=== PATIENT | female | born 1990 | race Caucasian/White ===

== ENCOUNTER 2018-08-15 15:18 | Emergency (ER) | payer OTHER, SELFPAY ==
[2018-08-15 15:20] VITALS: BP 136/79; PULSE 72; RESP 12; TEMP 37.1; O2SAT 100; BMI 28.3
--- NOTE | 2018-08-15 16:32 | DI.RAD.S_ITS ---
PROCEDURE: XR CHEST 2V INDICATIONS: right sided pain TECHNIQUE: 2 views of the chest were acquired. COMPARISON: None. FINDINGS: Surgical changes and devices: None. Lungs and pleura: Lungs are clear. No pleural effusions or pneumothorax. Mediastinum: Mediastinal contours are normal. Heart size is normal. Bones and chest wall: No suspicious bony abnormalities. Soft tissues appear unremarkable. IMPRESSION: Normal for age, source of current right-sided pain symptoms is not seen. Dictated by: Farhad Mcclelland M.D. on 08/15/2018 at 17:04 Approved by: Farhad Mcclelland M.D. on 08/15/2018 at 17:04
[2018-08-15] MEDS: KETOROLAC 60 MG/2 ML VIAL 30 MG IM (16:36)
--- NOTE | 2018-08-15 16:56 | ED_ITS ---
HPI - Chest Pain General Chief Complaint: Chest Pain Stated Complaint: CHEST PAIN Time Seen by Provider: 08/15/18 16:20 Source: patient Mode of arrival: ambulatory Limitations: no limitations History of Present Illness HPI narrative: Patient is a 27 year old female who presents left upper chest pain. It is in 1 particular spot. It has been there all day nonradiating it comes and goes. Not exacerbated by food or exertion or movement. She can't pinpoint it but can't reproduce it. She denies any injury. She has taken Tums thought it was some acid reflux although Tums did not help. No radiation of pain. MD complaint: chest pain Duration: intermittent Pain location: left chest Severity: moderate Quality: sharp Pain radiation: none Relieving factors: nothing Context: recent illness Related Data Home Medications Medication Instructions Recorded Confirmed No Known Home Medications 08/15/18 08/15/18 Allergies Allergy/AdvReac Type Severity Reaction Status Date / Time No Known Drug Allergies Allergy Verified 08/15/18 15:24 Review of Systems Review of Systems GENERAL: Denies chills, fatigue, malaise, fever, sweats, travel HEENT: Denies sinus pain, ear pain, sore throat, difficulty swallowing, neck pain RESPIRATORY: Denies dyspnea, cough, wheezing, hemoptysis, sputum. CARDIOVASCULAR: See HPI GASTROINTESTINAL: Denies nausea, vomiting, abdominal pain, diarrhea, constipation, melena. : Denies dysuria, frequency, incontinence, hematuria, urinary retention, flank pain. MUSCULOSKELETAL: Denies weakness, joint pain, or bony pain SKIN: No rash, no erythema, no pruritus NEUROLOGIC: Denies weakness, dizziness, headache, numbness, change in speech, confusion PSYCHIATRIC: No concerning psychosocial issues. 12 point review of systems is negative except for those stated above and HPI COUNTS INCLUDE 234 BEDS AT THE [facility] Medical History Patient denies significant medical history (Acute) Surgical History Status post (Acute) Social History Smoking Status: Never smoker Social History Smoking Status: Never smoker Exam Initial Vital Signs Initial Vital Signs: Vital Signs Temperature 98.7 F 08/15/18 15:20 Pulse Rate 72 08/15/18 15:20 Respiratory Rate 12 08/15/18 15:20 Blood Pressure 136/79 08/15/18 15:20 Pulse Oximetry 100 08/15/18 15:20 GENERAL: Alert young female and in no acute distress. HEENT: Head atraumatic,EOMI, pupils reactive, CARDIOVASCULAR: Regular rate and rhythm without murmurs, rubs or gallops. Pain is not reproducible by palpation. Although she still is able to pinpoint it is underneath her left breast anteriorly. RESPIRATORY: Breath sounds equal bilaterally, no wheezes rales or rhonchi. ABDOMEN: Soft, nontender. Normoactive bowel sounds all 4 quadrants. No guarding or rebound. EXTREMITIES: Normal range of motion, no clubbing or edema. Neurovascularly intact NEUROLOGICAL: Alert and oriented x4.Normal gait and speech. Cranial nerves II through XII grossly intact. SKIN: Warm, dry, no laceration, no petechiae, no rashes or lesions. Scores HEART Score Heart Score history: Slightly Suspicious Heart Score EKG: Normal Heart Score Age: < 45 years old Heart Score risk factors: No known risk factors Heart Score troponin: < or = to normal limit Heart Score Total: 0 Course Orders Ordered: ED Orders 08/15/18 15:23 EKG-12 Lead Stat 08/15/18 16:32 XR chest 2V Stat Discontinued Medications Ketorolac Tromethamine (Toradol) 30 mg IM NOW ONE Stop: 08/15/18 16:33 Last Admin: 08/15/18 16:36 Dose: 30 mg Vital Signs - 8 hr 08/15/18 15:20 08/15/18 17:02 Temperature 98.7 F Pulse Rate 72 65 Respiratory Rate 12 16 Blood Pressure 136/79 Blood Pressure [Left Arm] 113/76 Pulse Oximetry 100 100 MDM - Chest Pain Imaging Data Chest x-ray: Radiologist's impression: PROCEDURE: XR CHEST 2V INDICATIONS: right sided pain TECHNIQUE: 2 views of the chest were acquired. COMPARISON: None. FINDINGS: Surgical changes and devices: None. Lungs and pleura: Lungs are clear. No pleural effusions or pneumothorax. Mediastinum: Mediastinal contours are normal. Heart size is normal. Bones and chest wall: No suspicious bony abnormalities. Soft tissues appear unremarkable. IMPRESSION: Normal for age, source of current right-sided pain symptoms is not seen. Dictated by: Farhad Mcclelland M.D. on 08/15/2018 at 17:04 ECG Data Attestation: I personally reviewed and interpreted this ECG as follows: Prior ECG tracings: not available for review Interpretation: Normal sinus rhythm rate [address] changes and no T-wave inversions PA interval 164 MDM Narrative Medical decision making narrative: At this time patient's symptoms are pinpoint. I do not believe it to be cardiac. A low risk. Seems to be more musculoskeletal. Better with Toradol. Discharge Plan Departure Patient Disposition: Home Clinical Impression: Acute costochondritis Discharge Date/Time: 08/15/18 17:12 Interventions: ED Discharge Assessment Last Done: 08/15/18 17:12 Instructions: Costochondritis Activity Restrictions/Additional Instructions: *You have been diagnosed with costochondritis *What to do: This can take time to heal. Seems to be more musculoskeletal. X- ray and EKG within normal limits *Continue to take medications as directed Motrin 800 mg 8 hours if needed for pain take with food for 1 week *Follow up with your primary care provider in 2-3 days *Return to ER if you should have increasing chest pain, shortness of breath, fever or any new, worsening or concerning symptoms Prescriptions: No Action No Known Home Medications RF: 0
[2018-08-15 17:02] VITALS: BP 113/76; PULSE 65; RESP 16; O2SAT 100
== END 2018-08-15 17:12 | disposition home or self-care (01) ==
PROVIDERS: Emergency Provider Emergency Medicine
DX: M94.0 Chondrocostal junction syndrome [Tietze] (principal); R07.89 Other chest pain
CPT/HCPCS: 71046; 93005; 96372; 99282; 99284; J1885

== ENCOUNTER 2020-03-11 12:57 | Emergency (ER) | payer OTHER, SELFPAY ==
[2020-03-11 13:50] VITALS: BP 164/82; PULSE 48; RESP 16; TEMP 36.9; O2SAT 100; BMI 26.9
[2020-03-11 14:19] LABS: Add Manual Diff / Slide Review NO; Basophils Absolute Auto 100 /uL (0-100); Basophils Percent Auto 0.8 % (0-2); Eosinophils Absolute Auto 0 /uL (0-450); Eosinophils Percent Auto 0.3 % (2-4); Hematocrit 40.3 % (36-46); Hemoglobin 13.7 g/dL (12.0-16.0); Lymphocytes Absolute Auto 2400 /uL (1100-4500); Lymphocytes Percent Auto 20.2 % (25-40); Mean Corpuscular HGB Conc 33.9 % (30-36); Mean Corpuscular Hemoglobin 30.4 PG (26-34); Mean Corpuscular Volume 89.9 fL (80-100); Monocytes Absolute Auto 400 /uL (0-900); Monocytes Percent Auto 3.8 % (3-14); Neutrophils Absolute Auto 8900 /uL (1500-7000); Neutrophils Percent Auto 74.9 % (50-75); Platelet Count 324 X10^3/uL (150-400); Red Blood Cell Count 4.48 X10^6/uL (4.0-5.2); Red Cell Distribution Width 13.1 % (11.6-14.8); White Blood Cell Count 11.8 X10^3/uL (4.5-11.0)
[2020-03-11 14:23] LABS: INR 1.1 (0.9-1.3); Prothrombin Time 12.3 SECONDS (10.1-12.7)
[2020-03-11 14:25] LABS: PTT Partial Thromboplastin Tim 33 SECONDS (26.4-36.2)
[2020-03-11 14:27] LABS: Alanine Aminotransferase 20 IU/L (<35); Albumin 4.8 g/dL (3.5-5.0); Albumin Globulin Ratio 1.3 (1.0-2.8); Alkaline Phosphatase 49 U/L (38-126); Aspartate Aminotransferase 23 IU/L (14-36); BUN Creatinine Ratio 11.1 (6-22); Bilirubin Total 0.5 mg/dL (0.2-1.3); Blood Urea Nitrogen 8 mg/dL (7-17); Calcium 9.8 mg/dL (8.4-10.2); Carbon Dioxide 29 mmol/L (22-32); Chloride 103 mmol/L (98-107); Estimated Glomerular Filt Rate > 60.0 mL/min (>60); Globulin 3.8 g/dL (1.7-4.1); Glucose 100 mg/dL (70-100); HEMOLYSIS < 15 (0-50); Potassium 3.8 mmol/L (3.4-5.1); Sodium 138 mmol/L (137-145); Total Protein 8.6 g/dL (6.3-8.2)
--- NOTE | 2020-03-11 15:26 | DI.CT.S_ITS ---
PROCEDURE: CT ABDOMEN PELVIS W CON INDICATIONS: LLQ pain, N/V/bloody stools TECHNIQUE: After the administration of intravenous contrast, 5 mm thick sections acquired from the diaphragm to the symphysis. 5 mm coronal and sagittal reformats were acquired. For radiation dose reduction, the following was used: automated exposure control, adjustment of mA and/or kV according to patient size. COMPARISON: None. FINDINGS: Image quality: Excellent. ABDOMEN: Lung bases: Lung bases are clear. Heart size is normal. Solid organs: Liver is enlarged. Gallbladder is unremarkable . Biliary system is non dilated. Pancreas enhances normally. Spleen is normal in size and enhancement. No adrenal nodules. Kidneys demonstrate normal size and enhancement, without hydronephrosis. Peritoneum and bowel: Bowel loops demonstrate thickening and inflammatory change within significant portions of the descending colon. No free fluid or air. Nodes and vessels: No retroperitoneal or mesenteric adenopathy by size criteria. Aorta and inferior vena cava are normal in size. Miscellaneous: No ventral hernias. PELVIS: Genitourinary: Bladder wall thickness is normal. Miscellaneous: No inguinal hernias or adenopathy. Bones: No suspicious bony lesions. No vertebral body compression fractures. IMPRESSION: 1. Thickening and surrounding inflammatory change of the descending colon as above most consistent with colitis. This is most suspicious for inflammatory or infectious etiology. No visualized perforation or fluid collection. As clinically indicated, interval follow up after appropriate therapy may be obtained to document resolution exclude presence of underlying mass lesion. Dictated by: Bina Montes M.D. on 03/11/2020 at 15:58 Approved by: Bina Montes M.D. on 03/11/2020 at 16:00
[2020-03-11] MEDS: PANTOPRAZOLE 40 MG VIAL IV (15:35)
[2020-03-11] MEDS: SODIUM CHLORIDE 0.9% 1,000 ML 1000 ML IV (15:35)
[2020-03-11] MEDS: ONDANSETRON 4 MG/2 ML INJ IV (15:35)
[2020-03-11 16:05] LABS: Lactate (Lactic Acid) 1.3 mmol/L (0.7-2.1)
[2020-03-11 16:12] LABS: COVID19 -Nasal RAPID Negative (Negative)
[2020-03-11 16:29] LABS: Pregnancy Test Serum,Qual Negative (Negative)
[2020-03-11] MEDS: KETOROLAC 60 MG/2 ML VIAL 15 MG IV (16:34)
--- NOTE | 2020-03-11 17:28 | ED_ITS ---
HPI - Abdominal Pain <KEENA MartellP - Last Filed: 03/11/20 21:51> General Chief Complaint: Abdominal Pain Stated Complaint: Stomach Pain Time Seen by Provider: 03/11/20 15:21 Source: patient Mode of arrival: Ambulatory Limitations: no limitations History of Present Illness HPI narrative: This is a 29-year-old female, nonsmoker, who has no pertinent medical history presents to ED with chief complain of abdominal and had and 4-5 episodes of vomiting with diarrhea with bright red blood for about 16 hours. Patient pain is located in mid abdomen and worse in left quadrant. She denies fever or chills. Patient denies history of Crohn's or colitis but reports father had diverticulitis. Patient denies recent antibiotic medication use. Denies ovarian cyst history. Denies chest pain, dyspnea, dizziness, urinary symptoms but reports feels dehydrated.LMP 02/16/2020. 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 Related Data Previous Rx's Medication Instructions Recorded ciprofloxacin HCl [Cipro] 500 mg PO BID 7 Days #14 tab 03/11/20 hydrocodone-acetaminophen [[place]] 1 tab PO Q8H PRN #7 tab 03/11/20 metronidazole [Flagyl] 500 mg PO Q8H 7 Days #21 tab 03/11/20 ondansetron 4 mg PO Q8H PRN #7 tab 03/11/20 Allergies Allergy/AdvReac Type Severity Reaction Status Date / Time No Known Drug Allergies Allergy Verified 03/11/20 13:56 Review of Systems <Paul Lee [facility] - Last Filed: 03/11/20 21:51> Review of Systems Narrative: General: Denies fever, chills, fatigue, malaise, sweats. HEENT: Denies sinus pain, ear pain, sore throat, difficulty swallowing, dizziness. Respiratory: Denies dyspnea, cough, wheezing, hemoptysis, sputum. Cardiovascular: Denies chest pain, palpitations, orthopnea, edema. Gastrointestinal: See HP a : Denies dysuria, frequency, incontinence, hematuria, urinary retention. Musculoskeletal: Denies weakness, joint pain or bony pain. Skin: Denies rash, skin lesions, or other. Neurologic: Denies weakness, headache, numbness, change in speech, confusion, seizures, incoordination. Psychiatric: No concerning psychosocial issues. 12-point review of systems is negative except for those stated above. Patient History <AYO Martell - Last Filed: 03/11/20 21:51> Medical History Patient denies significant medical history Surgical History Status post Social History Smoking Status: Never smoker Smoking Status: Never smoker alcohol intake frequency: holidays/special occasions only Substance Use Type: does not use Exam <AYO Martell - Last Filed: 03/11/20 21:51> Narrative Exam Narrative: GEN: Alert, oriented x 3, well appearing and nourished, and in no acute distress. Head: Normal cephalic, atraumatic. No scalp or temporal tenderness, palpable mass or rash. EYES: Pupils are equal, round, and reactive to light and accommodation. Extraocular muscles are intact bilaterally. There is no subconjunctival hemorrhage, exudate and sclera non-icteric. ENT: Hearing grossly intact. Nose without bleeding, purulent discharge or deviation. Mucous membrane moist, no mucosal lesion. Throat without erythema, tonsillar hypertrophy or exudate. Uvula in midline, airway patent. Neck: Trachea in midline. No JVD, non-tender without lymphadenopathy. No masses or thyroid megaly. Supple, non-tender and no meningeal signs. CARDIAC: Normal regular rate and rhythm without murmurs, gallops, or rubs. No chest wall tenderness. No peripheral edema, cyanosis or pallor. Capillary refill is less than 2 seconds. RESPIRATORY: Lungs are clear to auscultate bilaterally. No cough, wheezes, rales, or rhonchi. No stridor, respiratory distress, increase work of breathing, or accessary muscle used. ABD: Abdomen soft and non-distended. Mid abdomen and left quadrant tender to palpate. No guarding or rebound tenderness to palpate. Bowel sounds are normal in all 4 quadrants. There is no palpable masses or organomegaly. EXT: Full painless ROM of all extremities with no loss of sensation, strength, effusion or edema. SKIN: Warm, dry, normal color for patient. No erythema, lesions or rash over visible areas. BACK: Nontender without deformity or crepitance. No flank tenderness. NEUROLOGICAL: Alert and oriented to place, time and person. Sensation and motor function intact bilaterally. No facial droops, dysphasia. PSYCHIATRIC: Good judgement and reason, without hallucinations, abnormal affect or abnormal behaviors during the examination. Patient is not suicidal. Initial Vital Signs Initial Vital Signs: Vital Signs Temperature 98.4 F 03/11/20 13:50 Pulse Rate 48 L 03/11/20 13:50 Respiratory Rate 16 03/11/20 13:50 Blood Pressure 164/82 H 03/11/20 13:50 Pulse Oximetry 100 03/11/20 13:50 <Drew Gutierrez DO - Last Filed: 03/12/20 07:16> Initial Vital Signs Initial Vital Signs: Vital Signs Temperature 98.4 F 03/11/20 13:50 Pulse Rate 48 L 03/11/20 13:50 Respiratory Rate 16 03/11/20 13:50 Blood Pressure 164/82 H 03/11/20 13:50 Pulse Oximetry 100 03/11/20 13:50 Scores <AYO Martell - Last Filed: 03/11/20 21:51> GCS [place] coma scale eye opening: Spontaneous Mayte coma scale verbal response: Orientated Mayte coma scale motor response: Obey commands Mayte coma scale total score: 15 qSOFA Altered Mental Status (GCS <15): No Respiratory rate greater than/equal to 22: No Systolic blood pressure less than or equal to 100: No qSOFA Total: 0 0-1 Not High Risk 1-3 High risk Course <AYO Martell - Last Filed: 03/11/20 21:51> Orders Ordered: Discontinued Medications Ciprofloxacin (Ciprofloxacin 500 Mg Tablet) 500 mg PO NOW ONE Stop: 03/11/20 17:30 Last Admin: 03/11/20 17:33 Dose: 500 mg Documented by: JEN Sodium Chloride (Normal Saline 0.9%) 1,000 mls @ 1,000 mls/hr IV BOLUS ONE Stop: 03/11/20 16:25 Last Infusion: 03/11/20 16:35 Dose: 0 mls/hr Documented by: Admin: 03/11/20 15:35 Dose: 1,000 mls/hr Documented by: JEN Ketorolac Tromethamine (Ketorolac 60 Mg/2 Ml Vial) 15 mg IV NOW ONE Stop: 03/11/20 16:17 Last Admin: 03/11/20 16:34 Dose: 15 mg Documented by: JEN Metronidazole (Metronidazole 500 Mg Tablet) 500 mg PO NOW ONE Stop: 03/11/20 17:30 Last Admin: 03/11/20 17:33 Dose: 500 mg Documented by: JEN Ondansetron HCl (Ondansetron 4 Mg/2 Ml Inj) 4 mg IV NOW ONE Stop: 03/11/20 15:27 Last Admin: 03/11/20 15:35 Dose: 4 mg Documented by: JEN Pantoprazole Sodium (Pantoprazole 40 Mg Vial) 40 mg IV NOW ONE Stop: 03/11/20 15:27 Last Admin: 03/11/20 15:35 Dose: 40 mg Documented by: JEN Vital Signs Vital signs: Vital Signs - 8 hr 03/11/20 13:50 03/11/20 17:32 03/11/20 17:33 Temperature 98.4 F 97.4 F L Pulse Rate 48 L Respiratory Rate 16 Blood Pressure 164/82 H 121/74 Pulse Oximetry 100 100 100 <Drew Gutierrez DO - Last Filed: 03/12/20 07:16> Orders Ordered: Discontinued Medications Ciprofloxacin (Ciprofloxacin 500 Mg Tablet) 500 mg PO NOW ONE Stop: 03/11/20 17:30 Last Admin: 03/11/20 17:33 Dose: 500 mg Documented by: JEN Sodium Chloride (Normal Saline 0.9%) 1,000 mls @ 1,000 mls/hr IV BOLUS ONE Stop: 03/11/20 16:25 Last Infusion: 03/11/20 16:35 Dose: 0 mls/hr Documented by: Admin: 03/11/20 15:35 Dose: 1,000 mls/hr Documented by: JEN Ketorolac Tromethamine (Ketorolac 60 Mg/2 Ml Vial) 15 mg IV NOW ONE Stop: 03/11/20 16:17 Last Admin: 03/11/20 16:34 Dose: 15 mg Documented by: JEN Metronidazole (Metronidazole 500 Mg Tablet) 500 mg PO NOW ONE Stop: 03/11/20 17:30 Last Admin: 03/11/20 17:33 Dose: 500 mg Documented by: AWAO Ondansetron HCl (Ondansetron 4 Mg/2 Ml Inj) 4 mg IV NOW ONE Stop: 03/11/20 15:27 Last Admin: 03/11/20 15:35 Dose: 4 mg Documented by: SCANAPO Pantoprazole Sodium (Pantoprazole 40 Mg Vial) 40 mg IV NOW ONE Stop: 03/11/20 15:27 Last Admin: 03/11/20 15:35 Dose: 40 mg Documented by: SCANAPO Vital Signs Vital signs: Vital Signs - 8 hr 03/11/20 13:50 03/11/20 17:32 03/11/20 17:33 Temperature 98.4 F 97.4 F L Pulse Rate 48 L Respiratory Rate 16 Blood Pressure 164/82 H 121/74 Pulse Oximetry 100 100 100 MDM - Abdominal Pain <Paul AYO Lee - Last Filed: 03/11/20 21:51> Differential Diagnosis Differential diagnosis: Likely abdominal pain, diverticulitis and other (Colitis, ovarian cyst, kidney stone) Medical Records Attestation: I reviewed the patient's medical records. Lab Data Attestation: I reviewed the patient's lab results. Result diagrams: 03/11/20 13:57 03/11/20 13:57 Labs: Lab Results 03/11/20 03/11/20 03/11/20 Range/Units 13:57 13:57 13:57 WBC 11.8 H (4.5-11.0) X10^3/uL RBC 4.48 (4.0-5.2) X10^6/uL Hgb 13.7 (12.0-16.0) g/dL Hct 40.3 (36-46) % MCV 89.9 (80-100) fL MCH 30.4 (26-34) PG MCHC 33.9 (30-36) % RDW 13.1 (11.6-14.8) % Plt Count 324 (150-400) X10^3/uL Neut % (Auto) 74.9 (50-75) % Lymph % (Auto) 20.2 L (25-40) % [place] % (Auto) 3.8 (3-14) % Eos % (Auto) 0.3 L (2-4) % Baso % (Auto) 0.8 (0-2) % Neut # (Auto) 8900 H (9654-5813) /uL Lymph # (Auto) 2400 (0515-9748) /uL [place] # (Auto) 400 (0-900) /uL Eos # (Auto) 0 (0-450) /uL Baso # (Auto) 100 (0-100) /uL PT 12.3 (10.1-12.7) SECONDS INR 1.1 (0.9-1.3) APTT 33 (26.4-36.2) SECONDS Sodium 138 (137-145) mmol/L Potassium 3.8 (3.4-5.1) mmol/L Chloride 103 (98-107) mmol/L Carbon Dioxide 29 (22-32) mmol/L BUN 8 (7-17) mg/dL Creatinine 0.72 (0.52-1.04) mg/dL Estimated GFR > 60.0 (>60) mL/min BUN/Creatinine Ratio 11.1 (6-22) Glucose 100 (70-100) mg/dL Lactate (0.7-2.1) mmol/L Calcium 9.8 (8.4-10.2) mg/dL Total Bilirubin 0.5 (0.2-1.3) mg/dL AST 23 (14-36) IU/L ALT 20 (<35) IU/L Alkaline Phosphatase 49 (38-126) U/L Total Protein 8.6 H (6.3-8.2) g/dL Albumin 4.8 (3.5-5.0) g/dL Globulin 3.8 (1.7-4.1) g/dL Albumin/Globulin Ratio 1.3 (1.0-2.8) Serum , Qual (Negative) COVID-19 PCR (Negative) 03/11/20 03/11/20 03/11/20 Range/Units 13:57 13:57 15:40 WBC (4.5-11.0) X10^3/uL RBC (4.0-5.2) X10^6/uL Hgb (12.0-16.0) g/dL Hct (36-46) % MCV (80-100) fL MCH (26-34) PG MCHC (30-36) % RDW (11.6-14.8) % Plt Count (150-400) X10^3/uL Neut % (Auto) (50-75) % Lymph % (Auto) (25-40) % [place] % (Auto) (3-14) % Eos % (Auto) (2-4) % Baso % (Auto) (0-2) % Neut # (Auto) (9503-2652) /uL Lymph # (Auto) (9553-7286) /uL [place] # (Auto) (0-900) /uL Eos # (Auto) (0-450) /uL Baso # (Auto) (0-100) /uL PT (10.1-12.7) SECONDS INR (0.9-1.3) APTT (26.4-36.2) SECONDS Sodium (137-145) mmol/L Potassium (3.4-5.1) mmol/L Chloride (98-107) mmol/L Carbon Dioxide (22-32) mmol/L BUN (7-17) mg/dL Creatinine (0.52-1.04) mg/dL Estimated GFR (>60) mL/min BUN/Creatinine Ratio (6-22) Glucose (70-100) mg/dL Lactate 1.3 (0.7-2.1) mmol/L Calcium (8.4-10.2) mg/dL Total Bilirubin (0.2-1.3) mg/dL AST (14-36) IU/L ALT (<35) IU/L Alkaline Phosphatase (38-126) U/L Total Protein (6.3-8.2) g/dL Albumin (3.5-5.0) g/dL Globulin (1.7-4.1) g/dL Albumin/Globulin Ratio (1.0-2.8) Serum , Qual Negative (Negative) COVID-19 PCR Negative (Negative) Point of care testing: Urine Dip Bedside Urine Glucose Negative Bedside Urine Bilirubin - Negative Bedside Urine Ketone - Negative Urine Specific [place] 1.005 Bedside Urine Occult Blood - Negative Bedside Urine pH 7.0 Bedside Urine Protein - Negative Bedside Urine Urobilinogen - Negative Bedside Urine Nitrite - Negative Bedside Urine Leukocytes - Negative Esterase Imaging Data CT scan - abdomen/pelvis: Radiologist's Impression: [address] [id number] Scan ReportSigned Patient: Cierra Abreu EMR#: [id number]: 1990Acct:[id number]/Sex: 29 / FDate of Service: 03/11/20Loc: EDAccession Number: [id number] Procedure: CT abdomen pelvis w con Ordering Provider: Paul Lee PROCEDURE: CT ABDOMEN PELVIS W CON INDICATIONS: LLQ pain, N/V/bloody stools TECHNIQUE: After the administration of intravenous contrast, 5 mm thick sections acquired from the diaphragm to the symphysis. 5 mm coronal and sagittal reformats were acquired. For radiation dose reduction, the following was used: automated exposure control, adjustment of mA and/or kV according to patient size. COMPARISON: None. FINDINGS: Image quality: Excellent. ABDOMEN: Lung bases: Lung bases are clear. Heart size is normal. Solid organs: Liver is enlarged. Gallbladder is unremarkable . Biliary system is non dilated. Pancreas enhances normally. Spleen is normal in size and enhancement. No adrenal nodules. Kidneys demonstrate normal size and enhancement, without hydronephrosis. Peritoneum and bowel: Bowel loops demonstrate thickening and inflammatory change within significant portions of the descending colon. No free fluid or air. Nodes and vessels: No retroperitoneal or mesenteric adenopathy by size criteria. Aorta and inferior vena cava are normal in size. Miscellaneous: No ventral hernias. PELVIS: Genitourinary: Bladder wall thickness is normal. Miscellaneous: No inguinal hernias or adenopathy. Bones: No suspicious bony lesions. No vertebral body compression fractures. IMPRESSION: 1. Thickening and surrounding inflammatory change of the descending colon as above most consistent with colitis. This is most suspicious for inflammatory or infectious etiology. No visualized perforation or fluid collection. As clinically indicated, interval follow up after appropriate therapy may be obtained to document resolution exclude presence of underlying mass lesion. Dictated by: Bina Montes M.D. on 03/11/2020 at 15:58 Approved by: Bina Montes M.D. on 03/11/2020 at 16:00 [facility] Narrative Medical decision making narrative: This is a healthy 29 year female presents to ED with mid abdomen and left quadrant abdominal pain with nausea and vomiting with bright red bloody diarrhea for 16 hours before coming into ED. denies previous history of similar symptoms. Abdomen was slightly tender palpate in left quadrant. Slight leukocytosis of 11.8. Normal lactate of 1.3. Unremarkable chemistry test and LFTs. Serum test was negative and negative Covid test. Stable H&H of 13.7/40.3. Stool cultures pending. Abdominal/pelvis CT result indicates thickening and surrounding inflammatory changes of the descending colon most consistent with colitis and suspicious for inflammatory versus infectious etiology. There is no perforation or fluid collection. Urine test does not indicate infection. Patient was medicated with IV fluid, Zofran, and Toradol which improved symptoms. With slightly elevated white count, patient was medicated with antibiotic medication Flagyl and Cipro for infectious colitis and discharged to home with remaining course. Patient discharged to home with additional Zofran and few tabs of [place] for severe pain. Patient advised to stay on clear liquid for next 24-48 hours and to advance to bland diet she tolerate. Strict return precautions were discussed with patient and advised to follow up with primary care physician possible referral for colonoscopy with acute symptoms improved. Patient verbalized understanding in agreement with treatment plan. <Drew Gutierrez, - Last Filed: 03/12/20 07:16> Lab Data Labs: Lab Results 03/11/20 03/11/20 03/11/20 Range/Units 13:57 13:57 13:57 WBC 11.8 H (4.5-11.0) X10^3/uL RBC 4.48 (4.0-5.2) X10^6/uL Hgb 13.7 (12.0-16.0) g/dL Hct 40.3 (36-46) % MCV 89.9 (80-100) fL MCH 30.4 (26-34) PG MCHC 33.9 (30-36) % RDW 13.1 (11.6-14.8) % Plt Count 324 (150-400) X10^3/uL Neut % (Auto) 74.9 (50-75) % Lymph % (Auto) 20.2 L (25-40) % [place] % (Auto) 3.8 (3-14) % Eos % (Auto) 0.3 L (2-4) % Baso % (Auto) 0.8 (0-2) % Neut # (Auto) 8900 H (9453-8633) /uL Lymph # (Auto) 2400 (1721-1067) /uL [place] # (Auto) 400 (0-900) /uL Eos # (Auto) 0 (0-450) /uL Baso # (Auto) 100 (0-100) /uL PT 12.3 (10.1-12.7) SECONDS INR 1.1 (0.9-1.3) APTT 33 (26.4-36.2) SECONDS Sodium 138 (137-145) mmol/L Potassium 3.8 (3.4-5.1) mmol/L Chloride 103 (98-107) mmol/L Carbon Dioxide 29 (22-32) mmol/L BUN 8 (7-17) mg/dL Creatinine 0.72 (0.52-1.04) mg/dL Estimated GFR > 60.0 (>60) mL/min BUN/Creatinine Ratio 11.1 (6-22) Glucose 100 (70-100) mg/dL Lactate (0.7-2.1) mmol/L Calcium 9.8 (8.4-10.2) mg/dL Total Bilirubin 0.5 (0.2-1.3) mg/dL AST 23 (14-36) IU/L ALT 20 (<35) IU/L Alkaline Phosphatase 49 (38-126) U/L Total Protein 8.6 H (6.3-8.2) g/dL Albumin 4.8 (3.5-5.0) g/dL Globulin 3.8 (1.7-4.1) g/dL Albumin/Globulin Ratio 1.3 (1.0-2.8) Serum , Qual (Negative) COVID-19 PCR (Negative) 03/11/20 03/11/20 03/11/20 Range/Units 13:57 13:57 15:40 WBC (4.5-11.0) X10^3/uL RBC (4.0-5.2) X10^6/uL Hgb (12.0-16.0) g/dL Hct (36-46) % MCV (80-100) fL MCH (26-34) PG MCHC (30-36) % RDW (11.6-14.8) % Plt Count (150-400) X10^3/uL Neut % (Auto) (50-75) % Lymph % (Auto) (25-40) % [place] % (Auto) (3-14) % Eos % (Auto) (2-4) % Baso % (Auto) (0-2) % Neut # (Auto) (2133-9736) /uL Lymph # (Auto) (6715-3143) /uL [place] # (Auto) (0-900) /uL Eos # (Auto) (0-450) /uL Baso # (Auto) (0-100) /uL PT (10.1-12.7) SECONDS INR (0.9-1.3) APTT (26.4-36.2) SECONDS Sodium (137-145) mmol/L Potassium (3.4-5.1) mmol/L Chloride (98-107) mmol/L Carbon Dioxide (22-32) mmol/L BUN (7-17) mg/dL Creatinine (0.52-1.04) mg/dL Estimated GFR (>60) mL/min BUN/Creatinine Ratio (6-22) Glucose (70-100) mg/dL Lactate 1.3 (0.7-2.1) mmol/L Calcium (8.4-10.2) mg/dL Total Bilirubin (0.2-1.3) mg/dL AST (14-36) IU/L ALT (<35) IU/L Alkaline Phosphatase (38-126) U/L Total Protein (6.3-8.2) g/dL Albumin (3.5-5.0) g/dL Globulin (1.7-4.1) g/dL Albumin/Globulin Ratio (1.0-2.8) Serum , Qual Negative (Negative) COVID-19 PCR Negative (Negative) Point of care testing: Urine Dip Bedside Urine Glucose Negative Bedside Urine Bilirubin - Negative Bedside Urine Ketone - Negative Urine Specific [place] 1.005 Bedside Urine Occult Blood - Negative Bedside Urine pH 7.0 Bedside Urine Protein - Negative Bedside Urine Urobilinogen - Negative Bedside Urine Nitrite - Negative Bedside Urine Leukocytes - Negative Esterase Discharge Plan Departure Patient Disposition: Home Clinical Impression: Colitis Instructions: DI for Abdominal Pain-Adult, DI for Colitis Activity Restrictions/Additional Instructions: You have been diagnosed with [colitis concerned for inflammatory versus infection in descending colon. Mildly elevated white count of 11.8 but labs are assuring including lactate.]. What to do: *Take your medications as directed. First dose of antibiotic medication provided in ED. Cipro twice a day for 7 days. Flagyl 3 times a day for 7 days. Zofran as needed for nausea. You can take [id number] Tylenol and or Motrin as needed for mild to moderate pain. Take Motrin with food to decrease GI irritations. [place] for severe pain is this is narcotic medications please do not drive, drink alcohol, operate heavy equipments. [place] can cause constipation as well. Do not drink alcohol when your on Flagyl. This medication have been transmitted to [facility] in [place]. *Follow up with your primary care provider in 2-3 days, call for an appointment. Let them know you were seen in the ED and that we asked you to be seen in [facility]. You may require colonoscopy when acute pain improves. *Return to ED if you have any new, worsening, or concerning symptoms, such as [worsening pain, fever, unable to tolerate fluids, dizziness, chest pain, breathing difficulty, increasing blood in stool or any acute concerns]. Prescriptions: New ciprofloxacin HCl [Cipro] 500 mg tablet 500 mg PO BID 7 Days Qty: 14 RF: 0 metronidazole [Flagyl] 500 mg tablet 500 mg PO Q8H 7 Days Qty: 21 RF: 0 ondansetron 4 mg tablet,disintegrating 4 mg PO Q8H PRN (Reason: nausea and vomiting) Qty: 7 RF: 0 hydrocodone-acetaminophen [[place]] 5-325 mg tablet 1 tab PO Q8H PRN (Reason: pain) Qty: 7 RF: 0 Referrals: [facility] [Outside] <Drew Gutierrez, DO - Last Filed: 03/12/20 07:16> Cosign ED Attending Cosdonaldoature Attestation: Dr Gutierrez Co-Sign Statement: I was available for consultation during this patient's emergency department visit. This chart is signed by myself for administrative purposes only. I did not have direct contact with this patient during this visit. They were seen independently by the APC.
[2020-03-11 17:32] VITALS: O2SAT 100
[2020-03-11 17:33] VITALS: BP 121/74; TEMP 36.3; O2SAT 100
[2020-03-11] MEDS: CIPROFLOXACIN 500 MG TABLET PO (17:33)
[2020-03-11] MEDS: metroNIDAZOLE 500 MG TABLET PO (17:33)
== END 2020-03-11 18:03 | disposition home or self-care (01) ==
PROVIDERS: Emergency Medicine; Emergency Provider Nurse Practitioner Family
DX: K52.9 Noninfective gastroenteritis and colitis, unspecified (principal); R11.10 Vomiting, unspecified; K92.1 Melena
CPT/HCPCS: 36415; 74177; 80053; 81003; 83605; 84703; 85025; 85610; 85730; 87045; 87635; 87899; 96361; 96374; 96375; 99281; 99284; C9113; J1885; J2405